=== PATIENT | female | born 1955 | race Caucasian/White ===

== ENCOUNTER 2018-06-21 08:27 | Emergency (ER) | payer OTHER, SELFPAY ==
--- NOTE | 2018-06-21 08:29 | ED.UPPEXIN ---
HPI - Extremity Injury (Upper) General Chief Complaint: Extremity Problem,Nontraumatic Stated Complaint: RIGHT SHOULDER PAIN/CAN'T LIFT Time Seen by Provider: 06/21/18 08:29 Source: patient Mode of arrival: ambulatory Limitations: no limitations History of Present Illness HPI narrative: Patient is a 63-year-old female here for evaluation of right shoulder injury. Patient states that approximately 1 week ago she woke up from sleep and had pain in her right shoulder. She states that it has continued since then. She went to go see her primary care doctor and had x-rays performed which she states she was told were normal. These were not available for my review. She was given a prescription for Celebrex. She has been taking 100 mg by mouth 3 times a day. She states that she has had continued pain. She did come with her arm in a sling which she got from a friend. No specific trauma that led to this incident. She stated that her primary doctor thought that she had potentially dislocated her shoulder and then it spontaneously relocated however the patient does not remember anything like this. She is tender on the front of the shoulder. Related Data Previous Rx's Medication Instructions Recorded hydrocodone-acetaminophen [Sayre] 1 tab PO Q4-6H PRN #14 tab 06/21/18 Allergies Allergy/AdvReac Type Severity Reaction Status Date / Time No Known Drug Allergies Allergy Verified 06/21/18 08:41 Review of Systems Constitutional Denies headache(s) ENT Ears, Nose, Mouth, and Throat: Denies headache(s) Cardiovascular Denies chest pain and Denies dyspnea Respiratory Denies dyspnea Gastrointestinal Gastrointestinal: Denies abdominal pain Musculoskeletal Comments: Right shoulder pain Integumentary/Breasts Denies lesions and Denies rash Neurologic Denies headache(s) Hematologic/Lymphatic Denies easy bleeding and Denies easy bruising COUNT INCLUDES THE [facility] Medical History Hyperlipidemia (Acute) Hypertension (Acute) Hypothyroid (Acute) Surgical History No pertinent past surgical history (Acute) Social History Smoking Status: Never smoker Exam Initial Vital Signs Initial Vital Signs: Vital Signs Temperature 98.0 F 06/21/18 08:37 Pulse Rate 80 06/21/18 08:37 Respiratory Rate 18 06/21/18 08:37 Blood Pressure 148/67 H 06/21/18 08:37 Pulse Oximetry 97 06/21/18 08:37 Const General: cooperative, healthy appearing, well developed, well groomed and No acute distress Orientation: alert, awake and oriented x3 HENMT Head: normal to inspection and normocephalic Resp Effort & Inspection: normal respiratory effort Cardio Pulses: radial pulses present on the right Skin Lesions: no lesions Rashes: no rashes Neuro General: alert, awake and oriented x3 Other: Sensation intact to light touch right upper extremity Extrem Other: Patient with limited range of motion of the right shoulder secondary to pain. She is exquisitely tender over the anterior shoulder specifically over the biceps tendon. She did have a positive Neer test. Was unable to do much more of an exam secondary to pain in her limited range of motion. Her right elbow is unremarkable. Her right wrist was unremarkable. Psych Appearance: grossly normal and well kempt Course Orders Ordered: ED Orders 06/21/18 08:30 XR shoulder RT min 2V Stat Vital Signs - 8 hr 06/21/18 08:37 Temperature 98.0 F Pulse Rate 80 Respiratory Rate 18 Blood Pressure 148/67 H Pulse Oximetry 97 MDM - Extremity Injury (Upper) MDM Narrative Medical decision making narrative: No x-rays were performed today since the patient stated that she had x-rays done last week by her primary doctor she reported that they were normal. She is neurovascularly intact. She does have very limited range of motion of her right shoulder which makes the exam very difficult. I do suspect that there may be a biceps tendinitis. She is currently on Celebrex and I encouraged her to continue this medication. I also informed her that is important that she keeps her shoulder moving as much as possible to prevent a frozen shoulder. I informed her that using the sling as little as possible is important. She states she has had a frozen shoulder in the past that required general anesthesia to fix. She does have a referral placed by her primary doctor for physical therapy. Will give her prescription for some pain medications to help with mobility. No indication for emergent MRI during this ER visit. Patient was given return precautions. She expressed understanding and agreement with plan. Discharge Plan Departure Patient Disposition: Home Clinical Impression: Acute pain of right shoulder Instructions: How To Perform RICE (Rest, Ice, Compress, Elevate), DI for Shoulder Pain Activity Restrictions/Additional Instructions: It is important that you keep her shoulder as mobile as possible. I do encourage you to use the sling as little as possible. Due the pendulum swings like we discussed. I do recommend that you continue with the Celebrex. I do recommend that you follow up with the physical therapy consult that her primary care doctor placed. Take the medication that you were given here in the emergency department as directed. Return to the emergency department for any new or worsening symptoms Prescriptions: New hydrocodone-acetaminophen [Sayre] 5-325 mg tablet 1 tab PO Q4-6H PRN (Reason: pain) Qty: 14 RF: 0
[2018-06-21 08:37] VITALS: BP 148/67; PULSE 80; RESP 18; TEMP 36.7; O2SAT 97; BMI 31.1
[2018-06-21 09:17] VITALS: BP 130/74; PULSE 79; RESP 18; O2SAT 95
== END 2018-06-21 09:19 | disposition home or self-care (01) ==
PROVIDERS: Emergency Provider Emergency Medicine
DX: M25.511 Pain in right shoulder (principal)
CPT/HCPCS: 99282

== ENCOUNTER 2022-03-02 19:35 | Emergency (ER) | payer OTHER, MEDICARE, SELFPAY ==
[2022-03-02 19:37] VITALS: BP 216/89; PULSE 76; RESP 18; TEMP 36; O2SAT 96; BMI 32.1
== END 2022-03-02 21:01 | disposition left against medical advice (07) ==
PROVIDERS: Emergency Provider Emergency Medicine
DX: S05.92XA Unspecified injury of left eye and orbit, initial encounter (principal)
CPT/HCPCS: 99281

== ENCOUNTER 2022-11-07 11:45 | Emergency (ER) | payer MEDICARE, OTHER, SELFPAY ==
[2022-11-07 12:06] VITALS: BP 186/82; PULSE 83; RESP 18; TEMP 36.7; O2SAT 96; BMI 33.0
--- NOTE | 2022-11-07 12:12 | DI.CT.S_ITS ---
PROCEDURE: CT HEAD/BRAIN WO CON INDICATIONS: GLF TECHNIQUE: Noncontrast 4.5 mm thick angled axial sections acquired from the foramen magnum to the vertex, with coronal and sagittal reformats. For radiation dose reduction, the following was used: automated exposure control, adjustment of mA and/or kV according to patient size. COMPARISON: None. FINDINGS: Image quality: Excellent. CSF spaces: Basal cisterns are patent. No extra-axial fluid collections. The ventricles are symmetric in size and shape. Brain: No intracranial bleeds or masses. There is mild cerebral volume loss for age, with resultant ventricular and sulcal prominence. There are mass periventricular and deep white matter chronic small vessel ischemic changes. There is intracranial internal carotid artery atherosclerosis. Skull and face: Calvarium and visualized facial bones appear intact, without suspicious lesions. Sinuses: Visualized sinuses and mastoids are clear. IMPRESSION: 1. No acute intracranial abnormalities. Dictated by: Matthew Perdue M.D. on 11/07/2022 at 12:32 Approved by: Matthew Perdue M.D. on 11/07/2022 at 12:33
--- NOTE | 2022-11-07 14:50 | ED_ITS ---
HPI - Fall <Kilo Plasencia PA-C - Last Filed: 11/07/22 18:33> General Chief Complaint: Fall Stated Complaint: fell and hit head T-2 Time Seen by Provider: 11/07/22 14:37 Source: patient Mode of arrival: Ambulatory History of Present Illness HPI Narrative: This is a 67-year-old female presents emergency department due to tripping and falling 2 days ago and hitting her head on a carpeted floor. She does not take blood thinners not lose consciousness. She denies any neck pain, extremity pain, or any other concerning signs or symptoms. States she feels ?just weak?. Denies any nausea, vomiting, or any other concerning signs or symptoms. Some difficulty looking at screens for a long time. Related Data Previous Rx's Medication Instructions Recorded hydrocodone 5 mg-acetaminophen 325 1 tab PO Q4-6H PRN pain #14 tabs 06/21/18 mg tablet ([place]) Allergies Allergy/AdvReac Type Severity Reaction Status Date / Time No Known Drug Allergies Allergy Verified 06/21/18 08:41 Review of Systems <Kilo Plasencia PA-C - Last Filed: 11/07/22 18:33> Review of Systems Narrative: GENERAL: Denies chills, fatigue, malaise, fever, sweats. HEENT: Denies sinus pain, ear pain, sore throat, difficulty swallowing, dizziness. RESPIRATORY: Denies dyspnea, cough, wheezing, hemoptysis, sputum. CARDIOVASCULAR: Denies chest pain, palpitations, orthopnea, edema, GASTROINTESTINAL: Denies nausea, vomiting, abdominal pain, diarrhea, constipation, melena. : Denies dysuria, frequency, incontinence, hematuria, urinary retention. MUSCULOSKELETAL: denies weakness, joint pain, or bony pain SKIN: Denies rash, skin lesions, or other NEUROLOGIC: Reports head pain, Denies weakness, , numbness, change in speech, confusion, seizures, incoordination. PSYCHIATRIC: No concerning psychosocial issues. 12 point review of systems is negative except for those stated above Patient History <Kilo Plasencia PA-C - Last Filed: 11/07/22 18:33> Medical History (Updated 11/07/22 @ 15:31 by Kilo Plasencia PA-C) Hyperlipidemia Hypertension Hypothyroid Surgical History No pertinent past surgical history Social History Smoking Status: Never smoker Smoking Status: Never smoker alcohol intake frequency: 0-2 drinks per day Substance Use Type: does not use Exam <Kilo Plasencia PA-C - Last Filed: 11/07/22 18:33> Narrative Exam Narrative: GENERAL: Well-developed patient, in mild distress. HEAD: Atraumatic. Normocephalic. EYES: Pupils equal round and reactive. Extraocular motions intact. No scleral icterus. No injection or drainage. ENT: Nose without bleeding, purulent drainage. Throat without erythema, tonsillar hypertrophy or exudate. Airway patent. NECK: Trachea midline. Non tender EXTREMITIES: No edema or joint tenderness. BACK: Nontender without deformity or crepitance. No flank tenderness. NEURO: AOx3. Cranial nerves 2-12 intact SKIN: No rash or erythema of visible areas Initial Vital Signs Initial Vital Signs: Vital Signs Temperature 98.1 F 11/07/22 12:06 Pulse Rate 83 11/07/22 12:06 Respiratory Rate 18 11/07/22 12:06 Blood Pressure 186/82 H 11/07/22 12:06 Pulse Oximetry 96 11/07/22 12:06 Oxygen Delivery Method Room Air 11/07/22 12:06 <Cassandra Mcmanus DO - Last Filed: 11/08/22 14:27> Initial Vital Signs Initial Vital Signs: Vital Signs Temperature 98.1 F 11/07/22 12:06 Pulse Rate 83 11/07/22 12:06 Respiratory Rate 18 11/07/22 12:06 Blood Pressure 186/82 H 11/07/22 12:06 Pulse Oximetry 96 11/07/22 12:06 Oxygen Delivery Method Room Air 11/07/22 12:06 Course <Kilo Plasencia PA-C - Last Filed: 11/07/22 18:33> Orders Ordered: ED Orders 11/07/22 12:12 CT head/brain wo con Stat Vital Signs Vital signs: Vital Signs - 8 hr 11/07/22 12:06 11/07/22 15:38 Temperature 98.1 F Pulse Rate 83 80 Respiratory Rate 18 18 Blood Pressure 186/82 H 175/85 H Pulse Oximetry 96 98 Oxygen Delivery Method Room Air Room Air <Cassandra Mcmanus DO - Last Filed: 11/08/22 14:27> Orders Ordered: ED Orders 11/07/22 12:12 CT head/brain wo con Stat Vital Signs Vital signs: Vital Signs - 8 hr 11/07/22 12:06 11/07/22 15:38 Temperature 98.1 F Pulse Rate 83 80 Respiratory Rate 18 18 Blood Pressure 186/82 H 175/85 H Pulse Oximetry 96 98 Oxygen Delivery Method Room Air Room Air MDM - Fall <Kilo Plasencia PA-C - Last Filed: 11/07/22 18:33> Imaging Data CT scan - head: Radiologist's Impression: [address] [address] [address] Scan Report Signed Patient: Ibrahima Daugherty MR#: [id number] : 1955 Acct:[id number] Age/Sex: 67 / F Date of Service: 11/07/22 Loc: ED Accession Number: [id number] ?? Procedure: CT head/brain wo con Ordering Provider: Cassandra Mcmanus D.O. PROCEDURE:? CT HEAD/BRAIN WO CON ? INDICATIONS:? GLF ? TECHNIQUE:? Noncontrast 4.5 mm thick angled axial sections acquired from the foramen magnum to the vertex, with coronal and sagittal reformats.? For radiation dose reduction, the following was used:? automated exposure control, adjustment of mA and/or kV according to patient size.? ? COMPARISON:? None. ? FINDINGS:? Image quality:? Excellent.? ? CSF spaces:? Basal cisterns are patent.? No extra-axial fluid collections.? The ventricles are symmetric in size and shape.? ? Brain:? No intracranial bleeds or masses.? There is mild cerebral volume loss for age, with resultant ventricular and sulcal prominence.? There are mass periventricular and deep white matter chronic small vessel ischemic changes.? There is intracranial internal carotid artery atherosclerosis.? ? Skull and face:? Calvarium and visualized facial bones appear intact, without suspicious lesions.? ? Sinuses:? Visualized sinuses and mastoids are clear.? ? IMPRESSION:? ? 1. No acute intracranial abnormalities. ? ? Dictated by: Matthew Perdue M.D. on 11/07/2022 at 12:32 ? ? Approved by: Matthew Perdue M.D. on 11/07/2022 at 12:33 ? MDM Narrative Medical decision making narrative: MDM * differential diagnosis includes but not limited to intracranial bleed, concussion, TBI, soft tissue * Prior records reviewed: Patient has not been here for similar complaints in the past * My lab interpretation: None ordered * My imgaing interpretation: Negative head-CT * Clinical Decision Rules/Scores evaluated: None * Independent discussions with: None ED Course: This is a 67-year-old female presents emergency department due to a head injury after tripping and falling. She would a completely normal neuro exam and low suspicion for any kind of intracranial bleed. Suspect mild concussion. Instructions given. Not on blood thinners. Shared Decision Making: Discussed plans patient is comfortable with discharge Social Considerations: None Disposition: Discharged to home Discharge Plan Departure Patient Disposition: Home Clinical Impression: Head injury Activity Restrictions/Additional Instructions: Thank you for coming to the [facility] Emergency Department today. Your head CT was negative for any kind of intracranial bleed but you may have a mild concussion. Please read the attached Morales for more information for treatment. Please follow up with the primary care provider in the next week for further evaluation and management. I hope you feel better soon. Prescriptions: No Action hydrocodone-acetaminophen [[place]] 5-325 mg tablet 1 tab PO Q4-6H PRN (Reason: pain) Qty: 14 0RF Referrals: Tatyana Oneill MD [Primary Care Provider] - Stand Alone Forms: Patient Portal/API <Cassandra Mcmanus DO - Last Filed: 11/08/22 14:27> Cosign ED Attending Ericature Attestation: I was immediately available in the department for consultation. Documentation has been reviewed.
[2022-11-07 15:38] VITALS: BP 175/85; PULSE 80; RESP 18; O2SAT 98
== END 2022-11-07 15:39 | disposition home or self-care (01) ==
PROVIDERS: Emergency Provider Physician Assistant Medical; PCP Internal Medicine
DX: S09.90XA Unspecified injury of head, initial encounter (principal); W01.0XXA Fall on same level from slipping, tripping and stumbling without subsequent striking against object, initial encounter
CPT/HCPCS: 70450; 99281; 99284

== ENCOUNTER → 2022-12-12 10:35 | Outpatient (CLI) | payer MEDICARE, OTHER, SELFPAY ==
--- NOTE | 2022-12-12 10:37 | DI.CT.S_ITS ---
PROCEDURE: CT HEAD/BRAIN WO CON INDICATIONS: Other headache syndrome TECHNIQUE: Noncontrast 4.5 mm thick angled axial sections acquired from the foramen magnum to the vertex, with coronal and sagittal reformats. For radiation dose reduction, the following was used: automated exposure control, adjustment of mA and/or kV according to patient size. COMPARISON: [facility], CT, CT HEAD/BRAIN WO CON, 11/07/2022, 12:15. FINDINGS: Image quality: Excellent. CSF spaces: Basal cisterns are patent. No extra-axial fluid collections. The ventricles are symmetric in size and shape. Brain: No intracranial bleeds or masses. There is cerebral volume loss for age, with resultant ventricular and sulcal prominence. There are periventricular and deep white matter chronic small vessel ischemic changes. There is intracranial internal carotid artery atherosclerosis. Skull and face: Calvarium and visualized facial bones appear intact, without suspicious lesions. Sinuses: Is moderate mucosal thickening is seen within the inferior left maxillary sinus. Visualized sinuses and mastoids are otherwise clear. 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 IMPRESSION: No imaging explanation is found for this patient's presenting symptoms. Negative for intracranial hemorrhage or other significant intracranial abnormality. Dictated by: Trent Guallpa M.D. on 12/12/2022 at 10:20 Approved by: Trent Guallpa M.D. on 12/12/2022 at 10:21
== END ==
PROVIDERS: PCP Internal Medicine; Referring Provider Internal Medicine; Visit Provider Internal Medicine
DX: G44.89 Other headache syndrome (principal)
CPT/HCPCS: 70450

== ENCOUNTER 2024-04-20 09:41 | Emergency (ER) | payer MEDICARE, OTHER, SELFPAY ==
[2024-04-20] VITALS (11 sets, daily range): BP systolic 168–189; BP diastolic 78–127; PULSE 57–72; RESP 19–23; TEMP 36.8; O2SAT 93–99; BMI 31.8
--- NOTE | 2024-04-20 09:51 | ED_ITS ---
HPI - Dizziness General Chief Complaint: Neuro Symptoms/Deficit Stated Complaint: Blurry Vision ,Dizzy Time Seen by Provider: 04/20/24 09:46 History of Present Illness HPI Narrative: 69-year-old female without history of known stroke, wears reading glasses, has had 3-4 weeks duration of blurred vision with difficulty close up reading, saw party planner last week and had dilated exam, no specific diagnosis recalled by the patient, seems to have better ability to read when she closes her right eye, party planner did not seem to have any specific diagnosis or recommendations. This morning she woke up 840 with dizziness, no sensation of spinning surroundings or self, but somewhat unsteady on her feet, particular if she moves her head or body. No nausea or vomiting. No focal weakness to face arm or leg. No associated shortness of breath or diaphoresis or nausea or chest pain. No abdominal pain. No back pain or flank pain. No similar symptoms before. No medications taken. She does take baby aspirin daily since seeing her provider last week, who also apparently was aware of her recent blurred vision symptoms. No recent cough, though she had upper respiratory infection symptoms mid March while in [place]. Related Data Previous Rx's Medication Instructions Recorded hydrocodone 5 mg-acetaminophen 325 1 tab PO Q4-6H PRN pain #14 tabs 06/21/18 mg tablet (Thurman) meclizine 25 mg tablet 25 mg PO TID 7 days #21 tabs 04/20/24 Allergies Allergy/AdvReac Type Severity Reaction Status Date / Time No Known Drug Allergies Allergy Verified 06/21/18 08:41 Review of Systems Review of Systems Narrative: See HPI Patient History Medical History (Updated 04/20/24 @ 11:09 by Zion Jacobo MD) Hypertension Hyperlipidemia Hypothyroid Surgical History No pertinent past surgical history Social History Smoking Status: Never smoker Smoking Status: Never smoker alcohol intake frequency: 0-2 drinks per day Substance Use Type: does not use Exam Narrative Exam Narrative: GENERAL: Well-developed patient, in mild distress. HEAD: Atraumatic. Normocephalic. EYES: Pupils equal round and reactive. Extraocular motions intact. No scleral icterus. No injection or drainage. ENT: Nose without bleeding, purulent drainage. Throat without erythema, tonsillar hypertrophy or exudate. Airway patent. NECK: Trachea midline. Non tender CARDIOVASCULAR: Regular rate and rhythm without murmurs, gallops, or rubs. RESPIRATORY: Clear to auscultation. Breath sounds equal bilaterally. No wheezes, rales, or rhonchi. GASTROINTESTINAL: Abdomen soft, non-tender, nondistended. EXTREMITIES: No edema or joint tenderness. BACK: Nontender without deformity or crepitance. No flank tenderness. NEURO: AOx3. Pupils equal round reactive to light, extraocular muscles intact, no diplopia on horizontal or vertical testing or near vision testing, tested with glasses in place. Remainder of cranial nerves also unremarkable. Motor 5/5 upper extremities. Motor 5/5 lower extremities. Asudhq-ri-xavc testing normal bilateral. She was able to flex her chin to chest, which did cause some dizziness symptoms, as well as rqaz-in-gvyt rotary had movements did cause some dizziness SKIN: No rash or erythema of visible areas Initial Vital Signs Initial Vital Signs: Vital Signs Pulse Rate 72 04/20/24 09:48 Respiratory Rate 23 04/20/24 09:48 Blood Pressure 189/93 H 04/20/24 09:48 Course Orders Ordered: Discontinued Medications Sodium Chloride (Normal Saline 0.9%) 1,000 mls @ 500 mls/hr IV BOLUS ONE Stop: 04/20/24 11:53 Last Infusion: 04/20/24 12:36 Dose: Infused Documented By: Admin: 04/20/24 10:21 Dose: 500 mls/hr Documented By: GURVINDER Meclizine HCl (Meclizine Hcl 12.5 Mg Tablet) 25 mg PO NOW ONE Stop: 04/20/24 10:36 Last Admin: 04/20/24 11:17 Dose: 25 mg Documented By: GURVINDER Vital Signs Vital signs: Vital Signs - 8 hr 04/20/24 12:46 Pulse Rate 57 L Blood Pressure 175/79 H Pulse Oximetry 98 Oxygen Delivery Method Room Air MDM - Dizziness Lab Data Attestation: I reviewed the patient's lab results. 04/20/24 09:57 04/20/24 09:57 Labs: Lab Results 04/20/24 Range/Units 09:57 WBC 5.9 (4.5-11.0) X10^3/uL RBC 4.83 (4.0-5.2) X10^6/uL Hgb 14.5 (12.0-16.0) g/dL Hct 43.1 (36-46) % MCV 89.3 (80-100) fL MCH 30.0 (26-34) PG MCHC 33.6 (30-36) % RDW 13.9 (11.6-14.8) % Plt Count 243 (150-400) X10^3/uL Neut % (Auto) 62.0 (50-75) % Lymph % (Auto) 28.5 (25-40) % Pender % (Auto) 6.2 (3-14) % Eos % (Auto) 2.8 (2-4) % Baso % (Auto) 0.5 (0-2) % Neut # (Auto) 3700 (7254-3204) /uL Lymph # (Auto) 1700 (1961-3767) /uL Pender # (Auto) 400 (0-900) /uL Eos # (Auto) 200 (0-450) /uL Baso # (Auto) 0 (0-100) /uL PT 11.1 (9.4-12.5) SECONDS INR 1.0 (0.9-1.3) APTT 38 H (25.1-36.5) SECONDS Sodium 138 (137-145) mmol/L Potassium 4.1 (3.4-5.1) mmol/L Chloride 104 (98-107) mmol/L Carbon Dioxide 24 (22-32) mmol/L BUN 23 H (7-17) mg/dL Creatinine 0.82 (0.52-1.04) mg/dL Estimated GFR > 60 (>60) mL/min BUN/Creatinine Ratio 28.0 H (6-22) Glucose 98 (80-110) mg/dL Calcium 9.1 (8.4-10.2) mg/dL Total Bilirubin 0.7 (0.2-1.3) mg/dL AST 38 H (14-36) IU/L ALT 24 (<35) IU/L Alkaline Phosphatase 100 (38-126) U/L Total Creatine Kinase 67 (30-135) U/L Troponin I < 0.012 (0.01-0.034) ng/mL Total Protein 7.6 (6.3-8.2) g/dL Albumin 4.4 (3.5-5.0) g/dL Globulin 3.2 (1.7-4.1) g/dL Albumin/Globulin Ratio 1.4 (1.0-2.8) Imaging Data CT scan - head: Radiologist's Impression: [address] [address] [address] Scan Report Signed Patient: Ibrahima Daugherty MR#: [id number] : 1955 Acct:[id number] Age/Sex: 69 / F Date of Service: 04/20/24 Loc: ED Accession Number: [id number] Procedure: CT Stroke Ordering Provider: Zion Jacobo MD PROCEDURE: CT STROKE INDICATIONS: dizziness, numbness TECHNIQUE: Noncontrast 4.5 mm thick angled axial sections acquired from the foramen magnum to the vertex, with coronal reformats. For radiation dose reduction, the following was used: automated exposure control, adjustment of mA and/or kV according to patient size. COMPARISON: None. FINDINGS: Image quality: Excellent CSF spaces: Basal cisterns are patent. Lateral ventricles are symmetric. Volume: Vascular calcifications. Periventricular white matter disease is commonly seen with chronic microangiopathy. Volume loss is present. These findings are aduy-xp-yvjwkqvu Brain: No intracranial hemorrhage. Trinh-white differentiation is grossly maintained. Craniofacial structures: No displaced fracture. Sinuses are clear. Orbits are intact. IMPRESSION: No acute intracranial pathology. Called to Dr. Jacobo at the timestamp below. Consider MRI if there is high concern for infarct This study fulfills neurological imaging criteria for inclusion or exclusion of acute stroke therapies based on available published neurological imaging guidelines. Dictated by: Gonzalez Foy M.D. on 04/20/2024 at 10:17 Approved by: Gonzalez Foy M.D. on 04/20/2024 at 10:18 CTA - brain/neck: Radiologist's Impression: [address] [address] [address] Scan Report Signed Patient: Ibrahima Daugherty MR#: [id number] : 1955 Acct:[id number] Age/Sex: 69 / F Date of Service: 04/20/24 Loc: ED Accession Number: [id number] Procedure: CT angio head and neck Ordering Provider: Zion Jacobo MD PROCEDURE: CT ANGIO HEAD AND NECK INDICATIONS: dizziness, numbness TECHNIQUE: After the administration of intravenous contrast, 1 mm thick sections acquired from the aortic arch through the [place] of [place]. 3-dimensional wureeds-bzkmaddio-gromxtiyhk (MIP) and/or volume rendering reformats were acquired of the central intracranial vasculature and neck separately. For radiation dose reduction, the following was used: automated exposure control, adjustment of mA and/or kV according to patient size. COMPARISON: None. FINDINGS: Image quality: Diagnostic HEAD ANGIOGRAPHY: Anterior circulation: ICAs: Pwrk-uk-lrglyidt cavernous carotid calcifications ACAs: Normal and symmetric MCAs: Normal and symmetric AComm: No aneurysm Venous sinuses: patent Posterior circulation: Dominance: Slightly right dominant Vertebral arteries: No stenosis or occlusion. No aneurysm. Basilar artery: Unremarkable PComms: No aneurysm bartender helper: Unremarkable NECK ANGIOGRAPHY: Aortic arch and subclavian arteries: Normal flow, no aneurysm. CCAs: No stenosis, occlusion, or aneurysm. ICA origins (by NASCET criteria): Mild calcifications without significant narrowing (less than 50%) ICAs: No high-grade stenosis, however there is appearance of beading in the mid cervical ICAs. ECAs: Origins are patent. Vertebral arteries: Unremarkable Soft tissues: 1 cm lesion seen in the left parotid. Heterogeneous left thyroid nodule measures over 1.5 cm. Lung apices: No pneumothorax Bones: Degenerative changes. IMPRESSION: No high-grade stenosis or large vessel occlusion. Krli-lm-dcjiiqmm areas of atherosclerotic narrowing as above. There is kofp-en-eshymoli beading of the bilateral cervical ICAs, likely fibromuscular dysplasia. 1 cm lesion seen in the left parotid. Left thyroid nodule measures over 1.5 cm. These could be further evaluated initially with ultrasound If there is high concern for infarct, consider MRI. Any quantitative measurements of stenosis were performed using NASCET criteria. Dictated by: Gonzalez Foy M.D. on 04/20/2024 at 10:19 Approved by: Gonzalez Foy M.D. on 04/20/2024 at 10:24 MRI brain: Radiologist's Impression: [address] [address] Magnetic Resonance Report Signed Patient: Ibrahima Daugherty MR#: [id number] : 1955 Acct:[id number] Age/Sex: 69 / F Date of Service: 04/20/24 Loc: ED Accession Number: [id number] Procedure: MR head/brain wo con Ordering Provider: Zion Jacobo MD PROCEDURE: MR HEAD/BRAIN WO CON INDICATIONS: dizzy, blurred viz, CT/CTA neg, eval for stroke TECHNIQUE: Noncontrast axial T1 spin echo, axial T2 fast spin echo, sagittal and axial FLAIR, coronal T2 fast spin echo, axial gradient echo, axial diffusion and ADC through the brain. COMPARISON: Located Within [facility], CT, CT ANGIO HEAD AND NECK, 04/20/2024, 10:04. FINDINGS: Image quality: Diagnostic CSF spaces: Basal cisterns are patent. Lateral ventricles are symmetric. Volume: There is overall mild volume loss. Brain: No acute diffusion restriction or enlargement Jake. No gross loss of trinh-white differentiation or acute edema. Craniofacial structures: Partially visualized craniofacial structures without significant abnormality. A 1 cm left parotid lesion is again seen. IMPRESSION: No acute infarct or hematoma Dictated by: Gonzalez Foy M.D. on 04/20/2024 at 11:29 Approved by: Gonzalez Foy M.D. on 04/20/2024 at 11:30 ECG Data Attestation: I personally reviewed and interpreted this ECG as follows: Interpretation: Normal sinus rhythm with rate of 69, no obvious ST segment elevation or depression changes. T-wave flattening lead 3, upright in leads 2 and F. MT 156, QRS 88, QTC 460. [facility] Narrative Medical decision making narrative: 69-year-old female with recent blurred vision evaluated by party planner last week with no specific diagnosis recalled, woke up this morning with dizziness, worse with head and body movements, nonfocal neuro exam, dizziness reproduce with isolated head movements, wmtlcl-gb-bcel testing normal. Suspect peripheral cause of dizziness by exam. However consider stroke. CT head noncontrast study with CT angiogram head and neck vessels ordered. Labs sent. EKG shows normal sinus rhythm. CT head noncontrast, no acute changes. CT angiogram vessels without significant stenoses, no mentioned thromboses. See radiology reports. MRI brain ordered, no obvious contraindications to imaging MRI brain no acute changes. Patient feels improved on meclizine. Meclizine prescription sent to pharmacy, also consider baby aspirin daily. Follow up with regular provider, visit was due this morning, reschedule and close follow up. Return precautions discussed. Home with Critical Care Time Critical Care Time Critical Care Time: Yes Total Critical Care Time: 31 Attestation: The high probability of a clinically significant, sudden or life threatening deterioration of the [cerebrovascular, cardiopulmonary, neurologic] system(s) required my full and direct attention, intervention and personal management. The aggregate critical care time was [31] minutes. This time is in addition to time spent performing reported procedures but includes the following: [x] Data Review and interpretation [x] Patient assessment and monitoring of vital signs [x] Documentation [x] Medication orders and management Discharge Plan Departure Patient Disposition: Home Clinical Impression: Dizziness, Blurred vision, Thyroid nodule, Nodule of parotid gland Activity Restrictions/Additional Instructions: Recent blurred vision evaluated by ophthalmology specialist last week without specific diagnosis, awakened this morning with dizziness, worse with head and body movements. CT head and neck vessels performed, negative for stroke, negative for blood vessel abnormalities with thrombosis or narrowing. Incidental imaging findings of parotid nodule, incidental imaging finding of thyroid nodule, both can be followed up as an outpatient. MRI brain showed no stroke changes or middle ear or other acute changes or abnormal masses. Exam possible peripheral middle ear cause of dizziness. Oral meclizine dose given. Consider taking meclizine for few more days. Consider taking aspirin daily if you are not already doing so. Follow up with your regular doctor as planned. Return to this/nearest emergency department for any change worsening symptoms or any concerns prior Prescriptions: New meclizine 25 mg tablet 25 mg PO TID 7 Days Qty: 21 0RF No Action hydrocodone-acetaminophen [Thurman] 5-325 mg tablet 1 tab PO Q4-6H PRN (Reason: pain) Qty: 14 0RF Referrals: Tatyana Oneill MD [Primary Care Provider] - Stand Alone Forms: Patient Portal/API
--- NOTE | 2024-04-20 09:53 | EKG_ITS ---
[address] [address] [address], [place] [address] Test Date: 2024-04-20 Pat Name: Ibrahima Daugherty Department: Room: Gender: Female Research Recruiter: raman : 1955 Requested By: Order Number: [id number] Reading MD: Partha Perry Measurements Intervals [place] Rate: 69 P: 38 LA: 156 QRS: 12 QRSD: 88 T: 36 QT: 430 QTc: 460 Interpretive Statements Normal sinus rhythm Electronically Signed On 04-26-2024 9:05:59 PDT by Partha Perry
--- NOTE | 2024-04-20 09:54 | DI.CT.S_ITS ---
PROCEDURE: CT ANGIO HEAD AND NECK INDICATIONS: dizziness, numbness TECHNIQUE: After the administration of intravenous contrast, 1 mm thick sections acquired from the aortic arch through the [place] of [place]. 3-dimensional nfngwnf-ehklnspsz-qaohpzjvgi (MIP) and/or volume rendering reformats were acquired of the central intracranial vasculature and neck separately. For radiation dose reduction, the following was used: automated exposure control, adjustment of mA and/or kV according to patient size. COMPARISON: None. FINDINGS: Image quality: Diagnostic HEAD ANGIOGRAPHY: Anterior circulation: ICAs: Ejot-di-zzndwoml cavernous carotid calcifications ACAs: Normal and symmetric MCAs: Normal and symmetric AComm: No aneurysm Venous sinuses: patent Posterior circulation: Dominance: Slightly right dominant Vertebral arteries: No stenosis or occlusion. No aneurysm. Basilar artery: Unremarkable PComms: No aneurysm tabber: Unremarkable NECK ANGIOGRAPHY: Aortic arch and subclavian arteries: Normal flow, no aneurysm. CCAs: No stenosis, occlusion, or aneurysm. ICA origins (by NASCET criteria): Mild calcifications without significant narrowing (less than 50%) ICAs: No high-grade stenosis, however there is appearance of beading in the mid cervical ICAs. ECAs: Origins are patent. Vertebral arteries: Unremarkable Soft tissues: 1 cm lesion seen in the left parotid. Heterogeneous left thyroid nodule measures over 1.5 cm. Lung apices: No pneumothorax Bones: Degenerative changes. IMPRESSION: No high-grade stenosis or large vessel occlusion. Uumh-mh-ebtovdpe areas of atherosclerotic narrowing as above. There is ohmy-gz-jsarcmem beading of the bilateral cervical ICAs, likely fibromuscular dysplasia. 1 cm lesion seen in the left parotid. Left thyroid nodule measures over 1.5 cm. These could be further evaluated initially with ultrasound If there is high concern for infarct, consider MRI. Any quantitative measurements of stenosis were performed using NASCET criteria. Dictated by: Gonzalez Foy M.D. on 04/20/2024 at 10:19 Approved by: Gonzalez Foy M.D. on 04/20/2024 at 10:24
--- NOTE | 2024-04-20 09:54 | DI.CT.S_ITS ---
PROCEDURE: CT STROKE INDICATIONS: dizziness, numbness TECHNIQUE: Noncontrast 4.5 mm thick angled axial sections acquired from the foramen magnum to the vertex, with coronal reformats. For radiation dose reduction, the following was used: automated exposure control, adjustment of mA and/or kV according to patient size. COMPARISON: None. FINDINGS: Image quality: Excellent CSF spaces: Basal cisterns are patent. Lateral ventricles are symmetric. Volume: Vascular calcifications. Periventricular white matter disease is commonly seen with chronic microangiopathy. Volume loss is present. These findings are emvb-rv-slevubzb Brain: No intracranial hemorrhage. Trinh-white differentiation is grossly maintained. Craniofacial structures: No displaced fracture. Sinuses are clear. Orbits are intact. IMPRESSION: No acute intracranial pathology. Called to Dr. Jacobo at the timestamp below. Consider MRI if there is high concern for infarct This study fulfills neurological imaging criteria for inclusion or exclusion of acute stroke therapies based on available published neurological imaging guidelines. Dictated by: Gonzalez Foy M.D. on 04/20/2024 at 10:17 Approved by: Gonzalez Foy M.D. on 04/20/2024 at 10:18
[2024-04-20 10:18] LABS: Add Manual Diff / Slide Review NO; Basophils Absolute Auto 0 /uL (0-100); Basophils Percent Auto 0.5 % (0-2); Eosinophils Absolute Auto 200 /uL (0-450); Eosinophils Percent Auto 2.8 % (2-4); Hematocrit 43.1 % (36-46); Hemoglobin 14.5 g/dL (12.0-16.0); Lymphocytes Absolute Auto 1700 /uL (1100-4500); Lymphocytes Percent Auto 28.5 % (25-40); Mean Corpuscular HGB Conc 33.6 % (30-36); Mean Corpuscular Volume 89.3 fL (80-100); Monocytes Absolute Auto 400 /uL (0-900); Monocytes Percent Auto 6.2 % (3-14); Neutrophils Absolute Auto 3700 /uL (1500-7000); Platelet Count 243 X10^3/uL (150-400); Red Blood Cell Count 4.83 X10^6/uL (4.0-5.2); Red Cell Distribution Width 13.9 % (11.6-14.8); White Blood Cell Count 5.9 X10^3/uL (4.5-11.0)
[2024-04-20] MEDS: SODIUM CHLORIDE 0.9% 1,000 ML 500 ML IV (10:21)
[2024-04-20 10:26] LABS: Prothrombin Time 11.1 SECONDS (9.4-12.5)
[2024-04-20 10:28] LABS: PTT Partial Thromboplastin Tim 38 SECONDS (25.1-36.5)
[2024-04-20 10:33] LABS: Alanine Aminotransferase 24 IU/L (<35); Albumin 4.4 g/dL (3.5-5.0); Albumin Globulin Ratio 1.4 (1.0-2.8); Alkaline Phosphatase 100 U/L (38-126); Aspartate Aminotransferase 38 IU/L (14-36); Bilirubin Total 0.7 mg/dL (0.2-1.3); Blood Urea Nitrogen 23 mg/dL (7-17); Calcium 9.1 mg/dL (8.4-10.2); Carbon Dioxide 24 mmol/L (22-32); Chloride 104 mmol/L (98-107); Creatine Kinase 67 U/L (30-135); Estimated Glomerular Filt Rate > 60 mL/min (>60); Globulin 3.2 g/dL (1.7-4.1); Glucose 98 mg/dL (80-110); HEMOLYSIS 30 (0-50); Potassium 4.1 mmol/L (3.4-5.1); Sodium 138 mmol/L (137-145); Total Protein 7.6 g/dL (6.3-8.2)
--- NOTE | 2024-04-20 10:35 | DI.MRI.S_ITS ---
PROCEDURE: MR HEAD/BRAIN WO CON INDICATIONS: dizzy, blurred viz, CT/CTA neg, eval for stroke TECHNIQUE: Noncontrast axial T1 spin echo, axial T2 fast spin echo, sagittal and axial FLAIR, coronal T2 fast spin echo, axial gradient echo, axial diffusion and ADC through the brain. COMPARISON: [facility], CT, CT ANGIO HEAD AND NECK, 04/20/2024, 10:04. FINDINGS: Image quality: Diagnostic CSF spaces: Basal cisterns are patent. Lateral ventricles are symmetric. Volume: There is overall mild volume loss. Brain: No acute diffusion restriction or enlargement Jake. No gross loss of pérez-white differentiation or acute edema. Craniofacial structures: Partially visualized craniofacial structures without significant abnormality. A 1 cm left parotid lesion is again seen. IMPRESSION: No acute infarct or hematoma Dictated by: Gonzalez Foy M.D. on 04/20/2024 at 11:29 Approved by: Gonzalez Foy M.D. on 04/20/2024 at 11:30
[2024-04-20 10:44] LABS: Troponin I < 0.012 ng/mL (0.01-0.034)
[2024-04-20] MEDS: MECLIZINE HCL 12.5 MG TABLET 25 MG PO (11:17)
--- NOTE | 2024-04-20 12:38 | PC.NURSE ---
Pt ambulated with steady gait and stand by assist to bathroom. States that she feels better after fluids,.
== END 2024-04-20 12:46 | disposition home or self-care (01) ==
PROVIDERS: Emergency Provider Emergency Medicine; PCP Internal Medicine
DX: R42 Dizziness and giddiness (principal); H53.8 Other visual disturbances; E04.1 Nontoxic single thyroid nodule; K11.8 Other diseases of salivary glands
CPT/HCPCS: 36415; 70450; 70496; 70498; 70551; 80053; 82550; 84484; 85025; 85610; 85730; 93005; 96360; 96361; 99284